=== PATIENT | male | born 1995 | race Hispanic/Latino ===

== ENCOUNTER 2020-07-21 18:57 | Emergency (ER) | payer SELFPAY ==
--- NOTE | ~2020-07-21 | XR_ITS ---
EXAMINATION: XR foot LT min 3V DATE: 07/21/2020 19:22 INDICATION: Left foot pain, initial encounter TECHNIQUE: Dorsoplantar, lateral, and 2 oblique views of the left foot were obtained. COMPARISON: None. FINDINGS: There is an acute, traumatic, closed, oblique fracture in the mid shaft of the second metat arsal. The distal fracture fragment is medially displaced by one cortical width. There is an acute, t raumatic, closed, transverse fracture in the proximal/mid shaft of the third metatarsal in anatomic a lignment. Soft tissue swelling surrounds the fractures. The joint spaces are normal. No additional ac joel osseous abnormality is identified. IMPRESSION: 1. Acute shaft fractures of the second and third metatarsals as detailed above. Reviewed, dictated and finalized at location A. DELIVERY DRIVER
[2020-07-21 19:02] VITALS: BP 150/93; PULSE 95; RESP 17; TEMP 36.6; O2SAT 98
--- NOTE | 2020-07-21 19:19 | ED.LOWEXIN ---
HPI - Extremity Injury (Lower) General Chief Complaint: Extremity Injury, Lower Stated Complaint: left foot injury Time Seen by Provider: 07/21/20 19:03 History of Present Illness HPI Narrative: Patient is a 25-year-old male who presents to the ER with left midfoot pain. Reports he was playing soccer went to kick the ball and another individual had their foot near and he kicked the bottom of the cleat. He had sudden onset pain. He has been unable to bear weight for the last 3 hours since injury. No numbness or tingling. No ankle pain. Related Data Allergies Allergy/AdvReac Type Severity Reaction Status Date / Time No Known Allergies Allergy Verified 07/21/20 19:45 Review of Systems Musculoskeletal: Musculoskeletal: Denies arthralgias and Denies joint swelling Comments: Midfoot pain left Neurologic: Denies focal weakness and Denies numbness PMFSH Past Medical History Medical History (Updated 07/21/20 @ 19:56 by Fadi Arceo MD) Healthy adult male Surgical History Surgical History (Updated 07/21/20 @ 19:23 by Fadi Arceo MD) No history of previous surgery Social History Social History Gender identity (if verbalized by the patient): Male Exam Narrative: Exam Narrative: GENERAL: Well-appearing, well-nourished, and in no acute distress. HEAD: Normocephalic, atraumatic. EXTREMITIES: Focused exam left foot reveals small amount of bruising over the dorsum of the midfoot with no swelling. Sensation intact. Normal dorsalis pedis and posterior tibial pulses. ROM intact at ankle but causes pain in foot. SKIN: Warm, dry, no rash. NEURO: Alert and oriented x3. PSYCH: Normal mood and affect. Course Course Emergency Course: Discussed with Ortho. Follow-up in clinic this week. Patient placed in short leg posterior due to discomfort in the foot with ankle range of motion. Vital Signs Vital signs: Vital Signs Temperature 97.9 F 07/21/20 19:02 Pulse Rate 95 07/21/20 19:02 Respiratory Rate 17 07/21/20 19:02 Blood Pressure 150/93 H 07/21/20 19:02 Pulse Oximetry 98 07/21/20 19:02 Temperature 97.9 F 07/21/20 19:02 Pulse Rate 95 07/21/20 19:02 Respiratory Rate 17 07/21/20 19:02 Blood Pressure 150/93 H 07/21/20 19:02 Pulse Oximetry 98 07/21/20 19:02 Procedures Orthopedic Splinting/Casting Injury #1: Splinting/Casting Date: 07/21/20 Splinting/Casting Time: 20:01 Side: left Lower Extremity Injury Location: ankle Lower Extremity Immobilizer: posterior splint Splint: customized in ED Pre-Procedure Neuro Vascular Exam: normal Post-Procedure Neuro Vascular Exam: normal Other Orthopedic Equipment: crutches MDM - Extremity Injury (Lower) Imaging Data Radiologist's impression: ITS Impressions Foot X-Ray 07/21/20 19:26 IMPRESSION: 1. Acute shaft fractures of the second and third metatarsals as detailed above. Discharge Plan Discharge Clinical Impression: Fracture of third metatarsal bone of left foot, Closed fracture of 2nd metatarsal Patient Disposition: Home, Self-Care Condition: Stable Instructions: Foot Fracture in Adults (ED) Additional Instructions: Return the ER if you suffer new injury, you have a cold/blue foot, you have additional concerns. Do not bear weight until cleared by orthopedic surgery. Prescriptions: New hydrocodone-acetaminophen 5-325 mg tablet 1 tablet PO Q6H PRN (Reason: pain) Qty: 20 RF: 0 Follow-up/Referrals: PHYSICIAN,LEATHER TANNER [Primary Care Provider] - Jose Eduardo Almanza MD [Physician] - 3 Days Stand Alone Forms: Work/School Release IP
[2020-07-21 20:10] VITALS: BP 137/84; PULSE 81; RESP 16; O2SAT 99
== END 2020-07-21 20:15 | disposition home or self-care (01) ==
PROVIDERS: Emergency Provider Emergency Medicine
DX: S92.322A Displaced fracture of second metatarsal bone, left foot, initial encounter for closed fracture (principal); S92.332A Displaced fracture of third metatarsal bone, left foot, initial encounter for closed fracture; W51.XXXA Accidental striking against or bumped into by another person, initial encounter; Y93.66 Activity, soccer
CPT/HCPCS: 29515; 73630; 99284

== ENCOUNTER → 2020-09-10 01:06 | Outpatient (CLI) | payer OTHER, SELFPAY ==
[2020-09-10 20:46] LABS: SARS-CoV-2 RNA PCR Negative
== END ==
PROVIDERS: Visit Provider Podiatrist Foot & Ankle Surgery
DX: Z01.812 Encounter for preprocedural laboratory examination (principal); Z20.822 Contact with and (suspected) exposure to COVID-19
CPT/HCPCS: C9803; U0003; U0005

== ENCOUNTER 2020-09-13 01:51 | Day surgery (SDC) | payer OTHER, SELFPAY ==
[2020-09-05 12:30] VITALS: BMI 24.7
--- NOTE | 2020-09-12 09:01 | P.PNAN_ITS ---
Anes - Initial Pre Proc Eval Procedure: Operation Date: 09/13/20 12:00 Proposed Procedures p Open Reduction Internal Fixation Of The Second Metatarsal Fracture, Left Foot - Raman Willoughby JR, MD Date/Time: 09/12/20 09:01 Surgeon: Raman Willoughby JR, MD Pre Op Diagnosis: Displaced 2nd metatarsal fx, left foot Patient Data Age: 25 Gender: M Height: 1.79 m Weight: 79.4 kg Allergies Allergy/AdvReac Type Severity Reaction Status Date / Time No Known Allergies Allergy Verified 09/05/20 12:29 Home Medications Medication Instructions Recorded Confirmed Type hydrocodone-acetaminophen 1 tablet PO Q6H PRN #20 tablet 07/21/20 09/05/20 Rx multivitamin 1 tablet PO DAILY 09/05/20 09/05/20 History Patient hx anesthesia problems: none Family hx anesthesia problems: none [facility] Past Medical History Medical History (Updated 07/25/20 @ 11:32 by Jose Eduardo Almanza MD) Healthy adult male Surgical History Surgical History (Updated 07/21/20 @ 19:23 by Fadi Arceo MD) No history of previous surgery Social History Social History Smoking status: Never smoker Alcohol intake: never Substance use: never Substance use type: does not use Living arrangements: with family Gender identity (if verbalized by the patient): Male Spiritual care concerns: No Anes - Eval Final PreProcedure Day of Procedure 09/12/20 09:01 Patient weight: normal Heart: regular rate and rhythm Lungs: clear to auscultation and normal air movement Airway: Mallampati scale class II Neurological: alert and oriented Last oral intake: >/= 8 hours ASA classification: I Emergent: no Anesthetic plan: proceed Anesthesia type and monitoring: general GIVS and LMA Informed Consent: The patient's anesthetic plan and its attendant risks and benefits were discussed with the patient/family/POA. Questions were solicited and answers provided to the satisfaction of the patient/family/POA.
[2020-09-13] VITALS (9 sets, daily range): BP systolic 87–127; BP diastolic 49–75; PULSE 60–84; RESP 9–20; TEMP 36.4–36.8; O2SAT 100
--- NOTE | ~2020-09-13 | XR_ITS ---
EXAMINATION: XR surgery orthopedic EXAM DATE: 09/13/2020 12:27 INDICATION: Left foot ORIF. Fractures left 2nd and 3rd metatarsal bones. TECHNIQUE: Fluoroscopy used during left foot surgery performed by Dr. Raman Willoughby JR MD. Radi ologist was not present for the imaging or procedure. Total fluoroscopic time of 10 seconds. The DA P for this procedure was 0.8 cGycm2. A total of 3 images sent to PACS from the exam. Correlation is made to left foot x-ray 08/29/2020. FINDINGS: There is been interval reduction in the displaced left 2nd metatarsal shaft fracture, and insertion of an overlying orthopedic plate with 4 supporting screws. Alignment anatomic. Nondisplaced 3rd metatarsal mid shaft transverse fracture with some evidence of callus formation, hea ling response, in anatomic alignment. Correlate with procedure note. IMPRESSION: Fluoroscopy used during left 2nd metatarsal ORIF. Reviewed, dictated and finalized at location A.
--- NOTE | 2020-09-13 07:14 | WPDHPUPDATE1 ---
History and Physical Update Update Date/Time: 09/13/20 07:14 History and Physical has been reviewed, including an updated exam of the patient. There are NO changes in the patient's condition. Risks, benefits, and alternatives have been discussed and questions answered. Patient agrees to proceed with procedure.
[2020-09-13] MEDS: LACTATED RINGERS 1,000 ML 30 ML IV CONT ×2 (11:00→13:36)
[2020-09-13] MEDS: ceFAZolin 2 GM/D5W 50 ML 2 GM/50 ML BAG IVPB (11:35)
[2020-09-13] MEDS: LIDOCAINE HCL 2% PF INJ 5 ML VIAL 10 ML INFILTRATE (11:58)
[2020-09-13] MEDS: BUPIVACAINE HCL 0.5% PF 30 ML VIAL INFILTRATE (11:59)
--- NOTE | 2020-09-13 12:36 | PM.OP ---
Procedure Note - Brief Procedure Note - Brief Date of procedure: 09/13/20 Pre-op diagnosis: Displaced 2nd metatarsal fx, left foot Post-op diagnosis: same Procedure performed: ORIF 2nd metatarsal fracture left foot Implants: 4 hole ortholoc plate with three locking and one 2.4mm locking srews Anesthesia: GLMA and local Surgeon: Raman Willoughby JR, DPM Estimated blood loss (mL): 2 Drains: No Packing: No Pathology: none sent Complications: No immediate complications Condition: stable Disposition: same day Findings: Displaced fracture with minimal bone callus formation. Fracture reduced to proper length and fixated.
--- NOTE | 2020-09-13 15:20 | PM.PROC ---
Procedure Note - Detailed Date of procedure: 09/13/20 Pre-op diagnosis: Displaced 2nd metatarsal fx, left foot Post-op diagnosis: same Procedure performed: Open reduction with internal fixation of 2nd metatarsal fracture left foot Implants: [employer] 4 hole ortholoc plate with 3 (2.4mm locking screws) and 1 ( 2.4mm non locking screw) Anesthesia: GLMA and local Surgeon: Raman Willoughby JR, MD Estimated blood loss (mL): 1 Drains: No Packing: No Pathology: none sent Complications: No immediate complications Condition: stable Disposition: same day Findings: Under mild sedation, the patient was brought to the operating room, placed on the operating table in the supine position. A pneumatic ankle tourniquet was placed about the patient's left ankle. Following general anesthesia and a proximal ankle block, the left foot was then scrubbed, prepped, and draped in the usual aseptic manner. An Esmarch bandage was then used to examine the patient's left foot and pneumatic ankle tourniquet was then inflated. Surgery began in the following manner. Attention was directed to the dorsal aspect of the 2nd metatarsal of the left foot where a 8 cm incision was made just medial to the extensor tendon to the left 2nd digit extending to the base of the 2nd metatarsal. The incision was continued deep down through the subcutaneous tissues using sharp and blunt dissection. All bleeders were cauterized as necessary. At this point a subcutaneous hematoma formation was noted. A full-length periosteal incision was made overlying the 2nd metatarsal extending from the distal metaphysial diaphyseal junction to the base of the 2nd metatarsal. Next, a freer periosteal elevator was used to separate the loosely developed bone callus holding the malunited 2nd metatarsal displaced fracture, at this point I was able to reduce the dislocated 2nd metatarsal and hold the reduced 2nd metatarsal fracture with a [employer] 4 hole plate and three 2.4mm non locking screws and one 2.4mm non locking screws utilizing standard principles and techniques. Fluoroscopy was used to make sure that the second metatarsal fracture was adequately reduced in both the AP and Lateral views. Next, the wound site was then flushed with copious amounts of sterile saline. Next, the periosteum and capsular structures overlying the 2nd metatarsal was reapproximated with 3-0 Vicryl. Next, subcutaneous structures were reapproximated and coapted utilizing 4-0 Vicryl. Next, the skin was reapproximated and coapted utilizing 4-0 Monocryl in running subcuticular suture fashion technique. Upon completion of the procedure, the incision was dressed with Steri-Strips, Adaptic, 4 x 4's, Kerlix, and Coban. The pneumatic ankle tourniquet was then deflated and a prompt hyperemic response noted to all digits of the left foot. Posterior splint was then applied. The patient did very well with the procedure and the anesthesia. He was transferred to the recovery room with vital signs stable and vascular status intact to all toes of the left foot. Following a period of postoperative monitoring, the patient will be discharged home on the following written and oral postoperative instructions: 1. Keep the dressing clean, dry, and intact. Use a cast protector bag with showers. 2. The patient to be strictly nonweightbearing with a knee scooter. 3. The patient should ice and elevate the left foot when at rest. 4. The patient to contact Dr. Willoughby for all postop care and if any problems arise. 5. Prescriptions were written for Percocet 5/325 dispensed 40 to be taken 1 p.o. q.4 to 6 hours as needed for severe pain.
== END 2020-09-13 14:18 | disposition home or self-care (01) ==
PROVIDERS: Visit Provider Podiatrist Foot & Ankle Surgery
PROC: (CPT 28485; principal; 2020-09-13 12:00)
DX: S92.322A Displaced fracture of second metatarsal bone, left foot, initial encounter for closed fracture (principal); W22.8XXA Striking against or struck by other objects, initial encounter; Y93.66 Activity, soccer; Y92.9 Unspecified place or not applicable; Y99.9 Unspecified external cause status
CPT/HCPCS: 28485; C1713; C9803; J0690; J1100; J2250; J2405; J2704; J3010; J7120; U0003; U0005

== ENCOUNTER 2022-08-17 13:05 | Emergency (ER) | payer SELFPAY ==
--- NOTE | ~2022-08-17 | XR_ITS ---
EXAMINATION: XR ankle RT min 3V DATE: 08/17/2022 17:32 INDICATION: Twisting right ankle injury with medial sided bruising and swelling TECHNIQUE: Anteroposterior, oblique, mortise, and lateral views of the right ankle were obtained. COMPARISON: None. FINDINGS: Alignment is normal. No fracture. Joint spaces are well maintained. No ankle joint effusion. Soft t issue swelling about the ankle most prominent medially. IMPRESSION: 1. No osseous abnormality. Reviewed, dictated and finalized at location A. IMPRESSION: 1. No osseous abnormality.
[2022-08-17 15:55] VITALS: BP 127/77; PULSE 66; RESP 19; TEMP 37; O2SAT 100
--- NOTE | 2022-08-17 17:08 | ED.LOWEXIN ---
HPI - Extremity Injury (Lower) General Chief Complaint: Extremity Injury, Lower Stated Complaint: right ankle injury Time Seen by Provider: 08/17/22 17:01 History of Present Illness HPI Narrative: 27-year-old male reports to the emergency department for right medial ankle pain after a fall that occurred in soccer yesterday. Patient states he was playing soccer when he jumped up, landing on his right foot abnormally, however he is unable to describe how he landed on his foot. He is reporting pain, swelling, ecchymosis to the medial aspect of his foot with mild pain to the lateral malleolus. Reports he was able to ambulate immediately after the fall. States he iced his ankle last night with some relief. He has not taken anything for pain. Denies other injury. Related Data Home Medications Medication Instructions Recorded Confirmed multivitamin 1 tablet PO DAILY 09/05/20 09/13/20 Allergies Allergy/AdvReac Type Severity Reaction Status Date / Time No Known Allergies Allergy Verified 08/17/22 16:57 Review of Systems Review of Systems: CONSTITUTIONAL: Denies fever, chills EYES: Denies visual changes, redness, or discharge. ENT: Denies rhinorrhea, congestion, sore throat, or otalgia. CARDIOVASCULAR: Denies chest pain, palpitations, or edema. RESPIRATORY: Denies cough or dyspnea. GASTROINTESTINAL: Denies abdominal pain, nausea, vomiting, or diarrhea. GENITOURINARY: Denies dysuria or hematuria. SKIN: Denies rash or itching. MUSCULOSKELETAL: See HPI NEUROLOGIC: Denies headache, numbness, dizziness, or weakness. PSYCHIATRIC: Denies anxiety or depression. PMFSH Past Medical History Medical History Healthy adult male Surgical History Surgical History No history of previous surgery Social History Social History Smoking status: Never smoker Alcohol intake: never Substance use: never Substance use type: does not use Living arrangements: with family Gender identity (if verbalized by the patient): Male Spiritual care concerns: No Exam Narrative: GENERAL: Well-appearing, well-nourished, and in no acute distress. Patient resting comfortably in the exam bed. He is pleasant and conversational. HEAD: Normocephalic, atraumatic. EYES: PERRLA and EOMI. ENT: Nares clear, no rhinorrhea or epistaxis. Mucous membranes moist. Oropharynx without tonsillar hypertrophy exudate or other lesions. CHEST: Clear to auscultation. No respiratory distress. No wheezes rales or rhonchi HEART: Regular rate and rhythm. No murmur heard. Normal peripheral pulses. EXTREMITIES: RLE: Edema, ecchymosis and tenderness overlying right medial malleolus. Slight tenderness to lateral malleolus. No tenderness to metatarsals, toes, navicular bone, calcaneus, Achilles tendon, tibia or fibula. Negative high squeeze. Full range of motion of knee, ankle, toes. DP pulses 2+. Sensation intact. Cap refill <2. Pt ambulatory with slight limp. SKIN: Ecchymosis to posterior aspect of medial malleolus. No abrasions or lacerations. NEURO: No focal deficits. Alert and oriented x3. PSYCH: Normal mood and affect. Course Vital Signs Vital signs: Vital Signs Temperature 98.6 F 08/17/22 15:55 Pulse Rate 66 08/17/22 15:55 Respiratory Rate 19 08/17/22 15:55 Blood Pressure 127/77 08/17/22 15:55 Pulse Oximetry 100 08/17/22 15:55 Oxygen Delivery Room Air 08/17/22 15:55 Temperature 98.6 F 08/17/22 15:55 Pulse Rate 66 08/17/22 15:55 Respiratory Rate 19 08/17/22 15:55 Blood Pressure 127/77 08/17/22 15:55 Pulse Oximetry 100 08/17/22 15:55 Oxygen Delivery Room Air 08/17/22 15:55 MDM - Extremity Injury (Lower) MDM Narrative Medical decision making narrative: 27-year-old reports to the emergency department for ecchymosis, edema, pain to th
[2022-08-17] MEDS: IBUPROFEN 600 MG TABLET PO (17:22)
== END 2022-08-17 20:15 | disposition home or self-care (01) ==
PROVIDERS: Emergency Provider Physician Assistant
DX: S93.401A Sprain of unspecified ligament of right ankle, initial encounter (principal); S96.911A Strain of unspecified muscle and tendon at ankle and foot level, right foot, initial encounter; Y93.66 Activity, soccer; W18.39XA Other fall on same level, initial encounter
CPT/HCPCS: 73610; 99283; A9270